=== PATIENT | female | born 1985 | race Caucasian/White ===

== ENCOUNTER 2016-10-12 19:48 | Emergency (ER) | payer BC, OTHER ==
[~2016-10-12] VITALS: Ht 177.8 cm; Wt 83.0 kg
[2016-10-12 19:51] VITALS: TEMP 36.7; Ht 177.8 cm; Wt 83.0 kg
[2016-10-12] MEDS ORDERED: BUPIVACAINE 0.5 % 5 MG/1 ML MPF 30ML VIAL INFIL ONE (20:15)
[2016-10-12] MEDS ORDERED: XYLOCAINE 1%/SOD BICARB 20 ML VIAL INFIL ONE (20:15)
[2016-10-12] MEDS ORDERED: LEVO75TA5 PO (20:39)
[2016-10-12] MEDS ORDERED: OMEG10007 PO (20:40)
[2016-10-12] MEDS ORDERED: PRENTAB26 PO (20:40)
[2016-10-12] MEDS ORDERED: AMOX250C3 PO (20:41)
--- NOTE | 2016-10-12 21:02 | DIAGNOSTIC IMAGING REPORT ---
RIGHT FINGER(S) MIN 2 VIEWS ROUTINE CLINICAL HISTORY: Right fifth finger COMPARISON: None. DISCUSSION: The examination is limited from a positioning standpoint. A tissue AP view was not obtained. No acute fractures or dislocations are visualized. The finger appears to be in slightly fixed flexion. IMPRESSION: 1. Limited study from a positioning standpoint. No acute fractures identified Electronically signed by: Maninder Gómez M.D. 10/12/2016 9:00 PM Dictated Date/Time: 10/12/2016 8:59 PM
--- NOTE | 2016-10-12 21:45 | EMERGENCY ROOM VISIT NOTE ---
ED Visit Note First contact with patient: 19:59 CHIEF COMPLAINT: Right fifth finger crush injury at work today HISTORY OF PRESENT ILLNESS: Patient is a [id number] 31-year-old white female who presents to the emergency department for evaluation of an injury to the tip of the right fifth finger that she sustained at work earlier today. 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 She sustained a laceration to the left fifth finger pad. The applied a clotting spray and a medication with lidocaine and tried to clean the wound. The covered it with a bandage. It was immediately painful, but bleeding was controlled with pressure. She presently rates her discomfort a 5/10. She is seen at an outside clinic and referred to the emergency department for further care and evaluation. She notes pain with movement of the finger, particularly at the DIP joint. She denies any numbness or tingling. REVIEW OF SYSTEMS: Review of systems as per HPI. All other systems reviewed were negative. At least 6 systems reviewed. PMH: Electronic medical records are reviewed and summarized as above/below. See Problem List.Her tetanus is up-to-date SOCIAL HISTORY: Patient lives at home with her family. PHYSICAL EXAM: Vital Signs: Reviewed Nurse's notes. CONSTITUTIONAL: Patient is a well-appearing 31-year-old white female who is awake and alert and in no acute distress. INTEGUMENTARY: There is a 1.5 cm long laceration on the ulnar aspect of the left fifth finger, over the distal phalanx. The edges gape apart with traction. There is no foreign material in the wound and it looks clean. There is no bleeding. No deep structures such as tendons or nerves are seen in the base of the wound. Nail and nail bed are not involved. She has slight soft tissue swelling of the tip of the finger. No subungual hematoma. Range of motion after digital block was full, and she was able to independently flex and extend at the DIP and PIP joints when they are isolated without difficulty. EMERGENCY DEPARTMENT COURSE: X-rays of the right fifth finger were obtained and were negative for acute fracture or bony abnormality. Using sterile technique, a digital block was performed using a 2:1 mixture (percent plain buffered lidocaine and 0.5% Sensorcaine. Digital block and wound repair was performed by the physician dental laboratory assistant under my direct supervision. Digital block was performed in the typical fashion. Finger then was reprepped and draped sterilely. Wound was irrigated copiously with normal saline solution and explored thoroughly once adequate anesthesia was obtained. There is no evidence for foreign body. Patient tolerated wound repair without difficulty. Total of 3, 5-0 nylon sutures were placed. Wound was cleansed and dressed and the patient was placed in a metal finger splint for comfort until digital block wears off. She does not appear to have suffered a fracture. She is no evidence for compartment syndrome. I do not suspect nerve or tendon injury. There is no nailbed involvement. RIGHT FINGER(S) MIN 2 VIEWS ROUTINE CLINICAL HISTORY: Right fifth finger COMPARISON: None. DISCUSSION: The examination is limited from a positioning standpoint. A tissue AP view was not obtained. No acute fractures or dislocations are visualized. The finger appears to be in slightly fixed flexion. IMPRESSION: 1. Limited study from a positioning standpoint. No acute fractures identified Problem List Medical Problems: (1) Hypothyroidism Status: Chronic Current/Historical Medications Scheduled Amoxicillin (Amoxil), 250 MG PO TID Fish Oil (Creighton-3), 2 CAP PO DAILY Levothyroxine Sodium (Levothyroxine Sodium), 75 MCG PO DAILY Multivit/Min/Iron/Fol Ac/Pren ( Vitamin), 1 TAB PO DAILY Allergies Coded Allergies: No Known Allergies (Unverified , 10/12/16) Vital Signs Date Time Temp Pulse Resp B/P Pulse Ox O2 Delivery O2 Flow Rate FiO2 10/12/16 22:02 68 17 171/65 98 10/12/16 19:51 36.7 84 16 143/76 98 Medications Administered Medications (Trade) Dose Ordered Sig/Lyndsey Route Start Time Stop Time Status Last Admin Dose Admin Lidocaine HCl (Buffered Lidocaine 1% Inj) 20 ml ONE ONCE INFIL 10/12/16 20:15 10/12/16 20:16 DC 10/12/16 20:14 20 ML Bupivacaine HCl (Marcaine 0.5% MPF Inj) 30 ml NOW ONCE INFIL 10/12/16 20:15 10/12/16 20:16 DC 10/12/16 20:14 30 ML Departure Information Impression Primary Impression: Finger laceration Additional Impression: Work related injury Referrals Talha Mccoy D.O. (PCP) Patient Instructions My [facility] Additional Instructions Keep wound clean and dry. Do not allow any crusting or dried blood to accumulate on sutures. If this occurs, use a 1:1 solution of hydrogen peroxide/ water on a Q-tip to clean the wound. Use an antibiotic ointment for 3-4 days, then let wound dry. Wear the metal finger splint for comfort as needed. Suture removal in 12-14 days. Return sooner for any signs of infection ( increasing redness, swelling, drainage). Follow-up with the [facility] occupational health for further care and management of your injury. Ice and elevate for swelling and pain. Ibuprofen 600 mg and Tylenol 1000 mg every 6 hrs for pain. Problem Qualifiers
[2016-10-12 22:02] VITALS: BP 171/65; PULSE 68; O2SAT 98
== END 2016-10-12 22:04 | disposition home or self-care (01) ==
LOC: C.EDB 19:50 → C.EDD 22:04
DX: S61.216A Laceration without foreign body of right little finger without damage to nail, initial encounter (principal); W31.9XXA Contact with unspecified machinery, initial encounter; Y92.89 Other specified places as the place of occurrence of the external cause; Y99.0 Civilian activity done for income or pay